=== PATIENT | male | born 1950 | race African-American/Black ===

== ENCOUNTER 2017-03-29 11:50 | Outpatient (CLI) | payer MEDICARE, BC | END 2017-03-29 11:51 | disposition home or self-care (01) | LOC: BICRAD 11:50 | PROVIDERS: ATTEND Internal Medicine | DX: J18.9 Pneumonia, unspecified organism (principal); I70.0 Atherosclerosis of aorta; I77.819 Aortic ectasia, unspecified site | CPT/HCPCS: 71046 ==

== ENCOUNTER 2017-12-06 20:34 | Emergency (ER) | payer MEDICARE, BC | END 2017-12-06 22:58 | disposition home or self-care (01) | LOC: ERS 20:34 | DX: T16.2XXA Foreign body in left ear, initial encounter (principal); J45.909 Unspecified asthma, uncomplicated; I10 Essential (primary) hypertension; E11.9 Type 2 diabetes mellitus without complications; Z79.84 Long term (current) use of oral hypoglycemic drugs; Z79.899 Other long term (current) drug therapy | CPT/HCPCS: 99282 ==

== ENCOUNTER 2021-06-14 07:51 | Outpatient (CLI) | payer MEDICARE ==
[2021-06-14 08:22] LABS: Estimated GFR-MDRD - POC Greater than 90
[2021-06-14] MEDS ORDERED: Iopamidol 370 76% 100 ML VIAL ONE (09:43)
== END 2021-06-14 07:52 | disposition home or self-care (01) ==
LOC: BICCT 07:51 → CT 07:52
PROVIDERS: ATTEND Internal Medicine Critical Care Medicine
DX: R04.2 Hemoptysis (principal); I25.10 Atherosclerotic heart disease of native coronary artery without angina pectoris
CPT/HCPCS: 71260; 82565; Q9967

== ENCOUNTER 2022-02-02 14:18 | Outpatient (CLI) | payer MEDICARE | END 2022-02-02 14:19 | disposition home or self-care (01) | LOC: BICRAD 14:18 | PROVIDERS: ATTEND Internal Medicine | DX: I50.9 Heart failure, unspecified (principal); R06.02 Shortness of breath | CPT/HCPCS: 36415; 71046; 80053; 83880 ==

== ENCOUNTER 2022-06-07 09:19 | Outpatient (CLI) | payer MEDICARE | END 2022-06-07 09:20 | disposition home or self-care (01) | LOC: RAD 09:19 | PROVIDERS: ATTEND Internal Medicine Critical Care Medicine | DX: R06.00 Dyspnea, unspecified (principal) | CPT/HCPCS: 71046 ==

== ENCOUNTER 2022-09-21 06:28 | Day surgery (SDC) | payer MEDICARE ==
[2022-09-20 12:14] VITALS: BMI 32.9
[2022-09-21] MEDS ORDERED: Lidocaine 1% PF 5 ML VIAL ONE (08:57)
[2022-09-21] MEDS ORDERED: PROPOFOL 200 MG/20 ML VIAL ONE (08:57)
[2022-09-21] MEDS ORDERED: Ondansetron PF 4 MG/2 ML Vial ONE (08:57)
== END 2022-09-21 10:15 | disposition home or self-care (01) ==
LOC: SDC 06:28
PROVIDERS: ATTEND Internal Medicine
PROC: 0DBN8ZZ Excision of Sigmoid Colon, Via Natural or Artificial Opening Endoscopic (ICD-10-PCS; principal; 2022-09-21)
PROC: 0DBL8ZZ Excision of Transverse Colon, Via Natural or Artificial Opening Endoscopic (ICD-10-PCS; 2022-09-21)
DX: D12.5 Benign neoplasm of sigmoid colon (principal); K57.30 Diverticulosis of large intestine without perforation or abscess without bleeding; A02.0 Salmonella enteritis; K64.8 Other hemorrhoids; T70.29XA Other effects of high altitude, initial encounter; Z79.899 Other long term (current) drug therapy
CPT/HCPCS: 36416; 88305; J2405; J2704